=== PATIENT | male | born 1950 | race Caucasian/White ===

== ENCOUNTER → 2023-10-03 | Outpatient (CLI) | payer MEDICARE ==
[~2023-10-03] MED LIST: ASPIRIN E.C. 8181 MG PO; SYNTHROID0.05 MG/TA PO; VITAMIN C PURE500 MG PO
== END ==
LOC: COL.RAD 11:32
DX: K40.90 Unilateral inguinal hernia, without obstruction or gangrene, not specified as recurrent (principal)